=== PATIENT | male | born 1950 | race Caucasian/White ===

== ENCOUNTER → 2016-10-15 | Outpatient (CLI) | payer OTHER ==
--- NOTE | 2016-10-15 14:06 | CT ---
CT Chest Without Contrast 1029 hours Indication: Follow-up pulmonary nodules. Technique: Spiral images were obtained through the chest. Images were reviewed in multiple planes . Dose reduction techniques were utilized. Comparison: Prior outside limited CT chest during heart scan study from [facility] from October 07, 2016. Findings: Lung and large airways: Probably benign pulmonary nodules are identified as follows: Inferior aspect right upper lobe anterolaterally, series 3, image 98, bilobed nodule, 8.5 x 3.5 mm (n ot included on prior study) Probably benign nodule along the minor fissure on the right, image 120, 3 x 4 mm 4 adjacent noncalcified probably benign nodules right middle lobe, image 138, 144, 148 x 2, measuring 2 mm, 3 mm, 3.5 x 4 mm, and 3.5 x 4 mm respectively. Right middle lobe anterolaterally, smooth oval noncalcified nodule, image 166, 3.6 x 6 mm Calcified 4 mm granuloma superior lingula anterolaterally, image 119. Superior segment right lower lobe posterolaterally, image 139, 5 x 3 mm Bronchi: No significant bronchial wall thickening Pleura: Normal. Vessels: The thoracic aorta has a normal contour. There is no aneurysm or dissection. There is modera te atherosclerotic calcification associated with the proximal LAD. Heart and pericardium: Normal. Mediastinum and arthur: No mass or lymphadenopathy. Calcified left hilar node is evident. Chest wall and lower neck: Normal. Limited upper abdomen: No significant abnormality. There is a 10 mm cyst left lobe liver lateral segm ent. There is also a small 7 mm cyst right lobe liver anterior segment. Skeletal system: Vertebral body heights are well-maintained. There are no lytic or sclerotic osseous lesions. Impression: 1. Benign-appearing pulmonary nodules on the right as detailed above. Consider follow-up noncontrast CT of the chest in 12 months to confirm stability and benign features. 2. Incidental cysts within the liver. 3. Calcified granuloma superior lingula with calcified left hilar node.
== END ==
LOC: CIMAGING 10:25
PROVIDERS: ATTEND Family Medicine
DX: R91.8 Other nonspecific abnormal finding of lung field (principal); K76.89 Other specified diseases of liver; J84.10 Pulmonary fibrosis, unspecified
CPT/HCPCS: 71250-PO

== ENCOUNTER → 2017-10-27 | Outpatient (CLI) | payer OTHER, MEDICARE | LOC: CIMAGING 11:20 | PROVIDERS: ATTEND Family Medicine | DX: R91.1 Solitary pulmonary nodule (principal); R91.8 Other nonspecific abnormal finding of lung field | CPT/HCPCS: 71250-PO ==

== ENCOUNTER 2018-06-16 08:00 | Day surgery (SDC) | payer OTHER, MEDICARE ==
--- NOTE | 2018-06-15 13:25 | PDGENHP ---
History & Physical Chief Complaint: Right shoulder rotator cuff tear History of Present Illness: Darnell is a pleasant 67 year old male who was found to have right shoulder rotator cuff tear as well as near complete LHB rupture. He has tried conservative treatment and is to the point where he would like to proceed with surgical intervention. Pertinent Past, Social, Family History: PMH: arthritis, hyperlipidemia. SH: non -smoker. FH: non-contributory Relevant Physical Exam: Physical exam of the right shoulder demonstrates FF to 170 deg with pain mid way through the ROM arc, ER to 75 deg, and IR to T7 which is all nearly symmetrical with the opposite side. He has anterolateral shoulder pain and weakness to ER against resistance. He has 5/5 strength to IR, biceps, and triceps with mild anterior shoulder pain with biceps testing. He has only mild weakness to SS testing with minimal pain. Speeds testing is obviously weak. Cross chest test is negative. FAIR exam positive for anterior shoulder pain. He is tender overlying the greater tuberosity. Non-tender overlying the biceps long head, anterior or posterior GH joint, coracoid, or anterior, inferior acromion. Distal neurovascularity intact upon a limited exam. Cardiorespiratory Assessment: RRR, CTAB
--- NOTE | 2018-06-16 07:14 | PDHPUP ---
History & Physical Update H&P update statement: This history and physical update is based on an assessment of the patient which was completed after admission or registration (within 24 hours), but prior to the surgery/procedure. H&P update: H&P reviewed & patient examined, no change in patient's condition since H&P completed
[2018-06-16] MEDS ORDERED: ceFAZolin 2 GM/DEXTROSE 100 ML IV ONE (08:08)
[2018-06-16] MEDS ORDERED: LR 1,000 ML IV ONE (08:13)
[2018-06-16] MEDS ORDERED: LIDOCAINE 1% 2 ML INJ ID PRN (08:13)
--- NOTE | 2018-06-16 08:58 | POSTANESTH ---
Post Anesthetic Evaluation Cardiovascular Status: Normal, Stable Respiratory Status: Normal, Stable Level of Consciousness/Mental Status: Can Participate in Eval, Moderately Sleepy Pain Control: Adequate, Prn Tx Ordered Nausea/Vomiting Control: Adequate, Prn Tx Ordered Complications Possibly Related to Anesthesia: None Noted
--- NOTE | 2018-06-16 09:01 | PDANEPAE ---
ANE History of Present Illness 67 yo male for R shoulder arthroscopy. ANE Past Medical History - Cardiovascular History Hx Hypertension: No Hx Arrhythmias: No Hx Chest Pain: No Hx Coronary Artery / Peripheral Vascular Disease: No Hx CHF / Valvular Disease: No Hx Palpitations: No - Pulmonary History Hx COPD: No Hx Asthma/Reactive Airway Disease: No Hx Recent Upper Respiratory Infection: No Hx Oxygen in Use at Home: No Hx Sleep Apnea: No Sleep Apnea Screening Result - Last Documented: Negative Pulmonary History Comment: 8 small lung nodules discovered after heart scan in 2017. Had F/U scan and were found to be benign and no further f/u. 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 Currie prior to 06/16/18 shoulder surgery. Enlarged prostate. - Liver History Hx Hepatic Disorders: No - Neurological & Psychiatric Hx Hx Neurological and Psychiatric Disorders: No - Cancer History Hx Cancer: No - Congenital Disorder History Hx Congenital Disorders: No - GI History GERD: no Hx Gastrointestinal Disorders: No - Other Health History Other Health History: Torn rotator cuff, right. Wears reading glasses. gets earaches, right ear. dental implant - lower left - Chronic Pain History Chronic Pain: Yes (right shoulder) - Surgical History Prior Surgeries: cervical lymph node removal, 1972. TUMOR REMOVAL FROM BLADDER ANE Review of Systems Review of Systems: - Exercise capacity METS (RN): 5 METS - Systems Constitutional: Reports: no symptoms ANE Patient History - Allergies Allergies/Adverse Reactions: No Known Allergies Allergy (Verified 05/28/18 13:55) - Home Medications Home Medications: Ibuprofen 05/28/18 [Last Taken 1 Week Ago ~06/09/18] Sildenafil Citrate 05/28/18 [Last Taken 05/29/18] Herbals/Supplements -Info Only 06/16/18 [Last Taken 2 Weeks Ago ~06/02/18] [place]-3 06/16/18 [Last Taken 2 Weeks Ago ~06/02/18] - NPO status NPO Status: no food or drink >8 hours - Anes Hx Anes Hx: no prior problems - Smoking Hx Smoking Status: Never smoked - Alcohol Use Alcohol Use: None - Family Anes Hx Family Anes Hx: neg - N/A Family Hx Anesthesia Complications: none ANE Labs/Vital Signs - Vital Signs Vital Signs: reviewed preoperatively; see RN documention for details Blood Pressure: 130/79 Heart Rate: 58 O2 Sat (%): 97 Height: 170.18 cm Weight: 63.503 kg ANE Physical Exam - Airway Neck exam: FROM Mallampati Score: Class 1 Mouth exam: normal dental/mouth exam - Pulmonary Pulmonary: clear to auscultation - Cardiovascular Cardiovascular: regular rate and rhythym - ASA Status ASA Status: II ANE Anesthesia Plan Anesthesia Plan: GA w LMA Regional Anesthesia: interscalene BP NB, POPC/PSR
[2018-06-16] MEDS ORDERED: BUPIVACAINE/EPI 0.5% 30 ML SDV ONE (09:02)
[2018-06-16] MEDS ORDERED: EPINEPHrine 1 MG/ML INJ ONE (09:03)
[2018-06-16] MEDS ORDERED: PROMETHAZINE HCL 25 MG/ML INJ IVP PRN ×2 (09:31→12:00)
[2018-06-16] MEDS ORDERED: oxyCODONE IR 5 MG TAB PO PRN ×2 (09:31→12:00)
[2018-06-16] MEDS ORDERED: ACETAMINOPHEN 500 MG TAB PO PRN ×2 (09:31→12:00)
[2018-06-16] MEDS ORDERED: ALBUTEROL 3 ML DEYVIAL IH PRN ×2 (09:31→12:00)
[2018-06-16] MEDS ORDERED: fentaNYL 100 MCG/2 ML INJ IVP PRN ×2 (09:31→12:00)
[2018-06-16] MEDS ORDERED: LR 250 ML IV PRN (09:31)
[2018-06-16] MEDS ORDERED: NALOXONE HCL 0.4 MG/ML INJ IVP PRN ×2 (09:31→12:00)
[2018-06-16] MEDS ORDERED: LIDOCAINE 2% 2 ML INJ ONE (10:21)
[2018-06-16] MEDS ORDERED: DEXAMETHASONE 4 MG/ML VIAL ONE (10:21)
[2018-06-16] MEDS ORDERED: PROPOFOL 200 MG/20 ML VIAL ONE ×2 (10:22)
[2018-06-16] MEDS ORDERED: fentaNYL 100 MCG/2 ML INJ ONE (10:22)
[2018-06-16] MEDS ORDERED: ROPIVACAINE HCL 150 MG/30 ML INJ ONE (10:24)
[2018-06-16] MEDS ORDERED: THROMBIN (BOVINE) 5,000 UNIT VIAL TP ONE (10:44)
[2018-06-16] MEDS ORDERED: CALCIUM CHLORIDE 1 GM/10 ML INJ ONE (10:45)
[2018-06-16] MEDS ORDERED: ePHEDrine SULFATE 25 MG/5 ML SYR ONE (10:48)
[2018-06-16] MEDS ORDERED: LR 500 ML IV PRN (12:00)
[2018-06-16] MEDS ORDERED: ONDANSETRON 4 MG/2 ML VIAL IVP PRN ×2 (12:00→12:09)
[2018-06-16] MEDS ORDERED: HYDROCODONE/APAP 5/325 TAB PO PRN (12:09)
[2018-06-16] MEDS ORDERED: ACETAMINOPHEN 325 MG TAB PO PRN (12:09)
--- NOTE | 2018-06-16 12:09 | POSTOPPROG ---
Post Op Note Date of Operation: 06/16/18 Surgeon: Huong Weaver Sanitation Superintendent: coltrain Anesthesia: LMA, Other (Specify) Pre-op Diagnosis: r rct/impingement/labral tear Procedure: r shoulder scope with rcr/sad/dce/debride Inf/Abcess present in the surg proc area at time of surgery?: No Depth: Deep Incisional (Fascial) EBL: 50-100
[2018-06-16 13:16] VITALS: BP 123/71
--- NOTE | 2018-06-16 13:17 | GOP ---
DATE OF OPERATION: 06/16/2018 SURGEON: Huong Weaver MD FAMILY SERVICES ASSISTANT: OSVALDO Plasencia, LSA, whose presence was medically necessary. ANESTHESIA: By LMA, plus scalene nerve block per surgeon's request. PREOPERATIVE DIAGNOSIS: Right shoulder impingement syndrome with os acromiale, as well as rotator cu ff tear, labral tear and biceps rupture. POSTOPERATIVE DIAGNOSIS: Right shoulder impingement syndrome with os acromiale, as well as rotator c uff tear, labral tear and biceps rupture, with grade 2 chondral change in the glenoid. PROCEDURE PERFORMED: Right shoulder arthroscopy with rotator cuff repair x2, subacromial decompressi on, distal clavicle excision, debridement of biceps stump, labrum, rotator cuff, and chondroplasty of the glenoid. FINDINGS: INDICATIONS: This is a 67-year-old, active male with a several-month history of right shoulder pain worsening with use and with time despite conservative measures. MRI revealed a large rotator cuff te ar, as well as a significant anterior acromial curve associated with os acromiale. He wishes to have surgery in order to resolve the problem. DESCRIPTION OF PROCEDURE: Patient was brought to the operating room after the right side had been id entified as the correct side by the patient, nurse, and physician. Once in the operating room, he wa s given a scalene block on the right side and then placed under general anesthesia using an LMA. Onc e asleep, he was placed in a beach chair position with the right upper extremity sterilely prepped an d draped in the usual fashion using GSI solution. Once prepped and draped, incision was made off the posterolateral corner of the acromion with the cam era introduced without difficulty. Inspection of the joint revealed significant amount of fraying to the rotator cuff, as well the labrum. The biceps had been ruptured and a long stump was left dangli ng within the shoulder joint. Therefore, using an in-to-out technique, an anterior portal was made s uperolateral to the coracoid process with 6 x 75 mm threaded cannula placed through the anterior port al. Once in place, a 3.5 mm smooth shaver was used to debride and debulk the ruptured portion of the biceps tendon and debride the torn portion of the labrum at the superior, anterior, posterior portio ns, debride the loose pieces of cartilage noted at the glenoid, and the loose fragments of tendon ass ociated with the rotator cuff. Once completed, all instruments were removed from the shoulder joint, and using the same portal sites , reintroduced in the subacromial space. A third incision was made 2 cm lateral to the acromial proc ess in line with the posterior cortex of the clavicle with the camera switched to the lateral portal. Alternating arthroscopic Bovie tip and a shaver were used to remove the abundant amount of bursa wi thin the subacromial space and the soft tissue on the undersurface of the acromion. Acromionizer bur was brought through the posterior portal and used to remove the curved surface of the acromion until achieving a flat ceiling. Once achieving a flat ceiling, attention was turned to the distal clavicle, which was noted to have a large spur of its inferior portion and also using a combination of shaver and bur was used to remove 6 mm of bone from the distal end of the clavicle with 5 mm of bone having been taken off the acromio n. Once completed, the camera was switched to the posterior portal and 2 sets of #2 FiberWire were w oven into the anterior and posterior portions of the rotator cuff. They were attached on an anchor a nd the anchor was then driven onto the bone after the greater tuberosity had been eburnated in order to create a healing response. Once in the bone, as noted to have good apposition of the rotator cuff onto the bone. Once finished, all instruments were removed from the subacromial space with 30 cc of Marcaine infused in the subacromial space. The 3 portal sites were then closed using 3-0 nylon suture in a figure-of -eight type stitch. The wounds were then dressed with Xeroform, 4 x 4, and Tegaderm. Patient was co mpletely undraped in the operating room and a shoulder immobilizer placed on the right upper extremit y. He was then woken up, extubated, transferred onto a stretcher, and sent to recovery room in good condition. /[id number]/MODL
== END 2018-06-16 13:16 | disposition home or self-care (01) ==
LOC: FSGY 08:00
PROVIDERS: ATTEND Orthopaedic Surgery
PROC: 0PB94ZZ Excision of Right Clavicle, Percutaneous Endoscopic Approach (ICD-10-PCS; principal; 2018-06-16 09:30)
PROC: 0LB Tendons, Excision (ICD-10-PCS; principal; 2018-06-16 09:30)
PROC: 0MB14ZZ Excision of Right Shoulder Bursa and Ligament, Percutaneous Endoscopic Approach (ICD-10-PCS; principal; 2018-06-16 09:30)
PROC: 0LQ14ZZ Repair Right Shoulder Tendon, Percutaneous Endoscopic Approach (ICD-10-PCS; principal; 2018-06-16 09:30)
DX: M75.111 Incomplete rotator cuff tear or rupture of right shoulder, not specified as traumatic (principal); M75.41 Impingement syndrome of right shoulder; M75.21 Bicipital tendinitis, right shoulder; M24.111 Other articular cartilage disorders, right shoulder; Z85.51 Personal history of malignant neoplasm of bladder
CPT/HCPCS: J0171; J0690; J1100; J2704; J2795; J3010